=== PATIENT | female | born 1975 | race Caucasian/White ===

== ENCOUNTER → 2016-12-17 | Outpatient (CLI) | payer BC ==
[~2016-12-17] MED LIST: ALDOMET 250MG250 MG PO; FOLIC ACID 11 MG/TA1 PO; KEPPRA PO; KEPPRA1000 MG PO; LAMICTAL PO; LAMICTAL XR300 MG PO; LAMOTRIGINE PO; NATURE'S BLEND F1 MG PO; PRENATAL1 TA1 PO
== END ==
LOC: MC.RAD 09:22
DX: Z12.31 Encounter for screening mammogram for malignant neoplasm of breast (principal)

== ENCOUNTER → 2018-06-09 | Outpatient (CLI) | payer BC | LOC: MC.RAD 04-23 09:40 | DX: Z12.31 Encounter for screening mammogram for malignant neoplasm of breast (principal) ==

== ENCOUNTER → 2018-06-12 | Outpatient (CLI) | payer BC | LOC: MC.RAD 09:55 | DX: R92.2 Inconclusive mammogram (principal) | CPT/HCPCS: G0279 ==

== ENCOUNTER → 2021-09-25 | Outpatient (CLI) | payer BC | LOC: MC.RAD 09:57 | DX: Z12.31 Encounter for screening mammogram for malignant neoplasm of breast (principal); N64.89 Other specified disorders of breast ==

== ENCOUNTER → 2021-10-02 | Outpatient (CLI) | payer BC | LOC: MC.RAD 12:52 | DX: N60.01 Solitary cyst of right breast (principal); N64.89 Other specified disorders of breast ==

== ENCOUNTER → 2023-02-19 | Outpatient (CLI) | payer BC | LOC: COL.RAD 08:03 | DX: I77.3 Arterial fibromuscular dysplasia (principal); I10 Essential (primary) hypertension; R51.9 Headache, unspecified | CPT/HCPCS: Q9967 ==